=== PATIENT | male | born 1965 | race Caucasian/White ===

== ENCOUNTER 2023-06-18 16:43 | Emergency (ER) | payer OTHER ==
[2023-06-18] MEDS: Cyclobenzaprine 10 MG Tab PO ONE (18:16)
[2023-06-18] MEDS: Ketorolac 60 MG/2 ML SDV IM ONE (18:17)
== END 2023-06-18 19:45 | disposition home or self-care (01) ==
LOC: JD.ED 16:43
DX: S39.012A Strain of muscle, fascia and tendon of lower back, initial encounter (principal); Z79.899 Other long term (current) drug therapy; X58.XXXA Exposure to other specified factors, initial encounter
CPT/HCPCS: 72072; 72100; 96372; 99283; A9270; J1885